=== PATIENT | male | born 1960 | race African-American/Black ===

== ENCOUNTER 2024-10-27 00:32 | Inpatient (IN) | payer BC, OTHER ==
[2024-10-27] MEDS ORDERED: Ketorolac Tromethamine 30 MG (1 mL) VIAL IVP PRN (03:25)
[2024-10-27] MEDS ORDERED: Ipratropium/Albuterol 3 ML NEB NEB PRN (03:25)
[2024-10-27] MEDS ORDERED: Ondansetron PF 4 MG/2 ML Vial IVP PRN ×2 (03:25→22:48)
[2024-10-27] MEDS: Promethazine HCl 25 MG/ML VIAL IM PRN (04:23)
[2024-10-27] MEDS: Lactated Ringer's 1,000 ML IV SCH ×2 (04:23→23:42)
[2024-10-27] MEDS: Morphine 4 MG/ML VIAL SLOW IVP PRN (04:23)
[2024-10-27 04:33] VITALS: BMI 20.5
[2024-10-27] MEDS: Phenol 177 ML BOT PO PRN (09:43)
[2024-10-27] MEDS ORDERED: Ondansetron ODT 4 MG TAB SL PRN (09:57)
[2024-10-27] MEDS ORDERED: cefOXitin 2 GM in Sodium Chloride 0.9% 100 ML IVPB SCH (10:00)
[2024-10-27 10:52] LABS: #Basophils Less than 0.03 10x3/uL (0.0-0.2); %Basophils 0.4 % (0.0-1.0); %Monocytes 19.4 % (0.0-10.0); Hematocrit 30.6 % (42.0-52.0); Hemoglobin 9.9 g/dL (14.0-18.0); Mean Corpuscular HGB CONC 32.4 g/dL (32.0-36.0); Mean Corpuscular Hemoglobin 28.8 pg (27.0-31.0); Mean Platelet Volume 9.7 fL (7.4-10.4); Platelet Count 169 10x3/uL (130-400); RBC Distribution Width 13.8 % (11.5-14.5); Red Blood Cell (RBC) Count 3.44 mill/uL (4.70-6.10)
[2024-10-27 11:05] LABS: ALT (SGPT) 57 U/L (8-55); AST (SGOT) 35 U/L (5-34); Albumin 3.2 g/dL (3.4-4.8); Alkaline Phosphatase 48 U/L (40-110); Anion Gap 14 mmol/L (10-20); BUN (Urea Nitrogen) 34 mg/dL (8.4-25.7); Bilirubin, Total 0.8 mg/dL (0.2-1.2); Calc. Creatinine Clearance 35 mL/min (70-130); Calcium 8.6 mg/dL (7.8-10.44); Carbon Dioxide 31 mmol/L (23-31); Chloride 100 mmol/L (98-107); Estimated GFR 40; Glucose 94 mg/dL (80-115); Magnesium 2.6 mg/dL (1.6-2.6); Phosphorus 3.7 mg/dL (2.3-4.7); Potassium 3.6 mmol/L (3.5-5.1); Protein, Total 6.2 g/dL (5.8-8.1); Sodium 141 mmol/L (136-145)
[2024-10-27] MEDS ORDERED: cefOXitin 2 GM VIAL ONE (14:25)
[2024-10-27] MEDS ORDERED: Sodium Chloride 0.9% 100 ML ONE (14:25)
[2024-10-27] MEDS ORDERED: Lidocaine 2% PF 5 ML VIAL ONE (15:24)
[2024-10-27] MEDS ORDERED: PROPOFOL 20 ML ONE ×2 (15:24→21:19)
[2024-10-27] MEDS ORDERED: Midazolam HCl 2 mg/2 ml Vial ONE (15:25)
[2024-10-27] MEDS ORDERED: Ketamine In 0.9 % NaCl 50 MG/5 ML SYRINGE ONE (15:25)
[2024-10-27] MEDS ORDERED: fentaNYL PF 100 MCG/2 ML SYRINGE ONE (15:27)
[2024-10-27] MEDS ORDERED: Promethazine HCl 25 MG/ML VIAL IM PRN ×4 (15:43→22:48)
[2024-10-27] MEDS ORDERED: HYDROmorphone 2 MG/ML VIAL SLOW IVP PRN ×2 (15:43→22:48)
[2024-10-27] MEDS ORDERED: Ondansetron HCl/PF 4 MG/2 ML Vial IVP PRN ×2 (15:43→22:48)
[2024-10-27] MEDS ORDERED: Morphine 4 MG/ML VIAL ONE (17:49)
[2024-10-27] MEDS ORDERED: hydrALAZINE 20 MG/ML VIAL ONE (19:04)
[2024-10-27] MEDS: hydrALAZINE 20 MG/ML VIAL SLOW IVP PRN (19:12)
[2024-10-27] MEDS ORDERED: fentaNYL 50 mcg/mL 1 mL Vial ONE ×4 (21:19→23:52)
[2024-10-27] MEDS ORDERED: ePHEDrine Sulfate 50 MG/10 ML VIAL ONE (22:07)
[2024-10-27] MEDS ORDERED: SUGAMMADEX SODIUM 200 MG/2 ML VIAL ONE (22:23)
[2024-10-27] MEDS ORDERED: diphenhydrAMINE 25 MG CAP PO PRN (22:48)
[2024-10-27] MEDS ORDERED: diphenhydrAMINE 50 MG/ML VIAL IM PRN ×2 (22:48)
[2024-10-27] MEDS ORDERED: Naloxone HCl 0.4 mg/ml Vial IV PRN ×2 (22:48)
[2024-10-27] MEDS ORDERED: FENTANYL 500 MCG/10 ML VIAL 2,000 MCG in Sodium Chloride 0.9% 60 ML IV PRN (22:48)
[2024-10-27] MEDS ORDERED: diphenhydrAMINE 50 MG/ML VIAL IVP PRN ×2 (22:48)
[2024-10-27] MEDS ORDERED: HYDROmorphone 0.5 MG/0.5 ML SYRINGE ONE ×3 (22:52→23:24)
[2024-10-27] MEDS ORDERED: Communication Order-Pharmacy FS SCH ×2 (23:00)
[2024-10-28] MEDS: Ketorolac Tromethamine 30 MG (1 mL) VIAL IVP SCH (00:34)
[2024-10-28] MEDS ORDERED: HYDROcodone/Acetaminophen 7.5/325 mg Tablet PO PRN (03:31)
[2024-10-28] MEDS ORDERED: Acetaminophen 325 MG TAB PO PRN (03:31)
[2024-10-28] MEDS: cloNIDine 0.3 MG TAB PO SCH (09:03)
[2024-10-28 09:26] LABS: Hematocrit 31.6 % (42.0-52.0); Hemoglobin 10.1 g/dL (14.0-18.0); Mean Corpuscular Hemoglobin 28.7 pg (27.0-31.0); Mean Corpuscular Volume 89.8 fL (78.0-98.0); Mean Platelet Volume 9.8 fL (7.4-10.4); Platelet Count 199 10x3/uL (130-400); RBC Distribution Width 13.7 % (11.5-14.5); Red Blood Cell (RBC) Count 3.52 mill/uL (4.70-6.10)
[2024-10-28 09:35] LABS: Anion Gap 14 mmol/L (10-20); BUN (Urea Nitrogen) 33 mg/dL (8.4-25.7); Calc. Creatinine Clearance 35 mL/min (70-130); Calcium 8.4 mg/dL (7.8-10.44); Carbon Dioxide 30 mmol/L (23-31); Chloride 102 mmol/L (98-107); Estimated GFR 40; Glucose 95 mg/dL (80-115); Magnesium 2.4 mg/dL (1.6-2.6); Potassium 4.1 mmol/L (3.5-5.1); Sodium 142 mmol/L (136-145)
[2024-10-28 10:07] LABS: Band 46 % (5-11); Eosinophils 4 % (0-10); Large Platelets 4.6 % (0-5); Lymphocytes 7 % (21-51); Macrocytosis SLIGHT = 6-15 cells HPF (0-5); Metamyelocyte 1 % (0-0); Monocytes 12 % (0-10); Neutrophil 30 % (42-75); Plasma Cells 1 % (0-0); Platelet Adequacy Comment Platelets Normal; Polychromasia SLIGHT = 2-3 cells HPF (0-2); RBC Morphology Within Normal Limits
[2024-10-28] MEDS: Lactated Ringer's 1,000 ML IV SCH (16:01)
[2024-10-28] MEDS: diphenhydrAMINE 25 MG CAP PO PRN (21:44)
[2024-10-29] MEDS: Acetaminophen 650 MG/20.3 ML UDCUP PO PRN (01:01)
[2024-10-29] MEDS: HYDROmorphone/PF 10 MG in Sodium Chloride 0.9% 99 ML IV PRN (04:37)
[2024-10-29 06:48] LABS: Anion Gap 11 mmol/L (10-20); BUN (Urea Nitrogen) 29 mg/dL (8.4-25.7); Calc. Creatinine Clearance 40 mL/min (70-130); Calcium 8.4 mg/dL (7.8-10.44); Carbon Dioxide 29 mmol/L (23-31); Chloride 103 mmol/L (98-107); Estimated GFR 47; Glucose 103 mg/dL (80-115); Potassium 4.1 mmol/L (3.5-5.1); Sodium 139 mmol/L (136-145)
[2024-10-29] MEDS ORDERED: HYDROcodone/Acetaminophen 10/325 mg Tablet PO PRN (10:33)
[2024-10-29] MEDS ORDERED: traMADol HCl 50 MG TAB PO PRN ×3 (10:35→16:29)
[2024-10-29] MEDS: HYDROcodone/Acetaminophen 10/325 mg Tablet PO PRN (12:45)
[2024-10-29] MEDS: Ondansetron PF 4 MG/2 ML Vial IVP PRN (14:31)
[2024-10-29] MEDS ORDERED: Acetaminophen 500 MG TAB PO SCH (17:00)
[2024-10-29] MEDS: Ondansetron PF 4 MG/2 ML Vial IVP SCH (19:11)
[2024-10-29] MEDS: Morphine 4 MG/ML VIAL SLOW IVP PRN (19:11)
[2024-10-29] MEDS: Amlodipine 5 MG TAB PO SCH (19:12)
[2024-10-29] MEDS: Lactated Ringer's 1,000 ML IV SCH (19:12)
[2024-10-29] MEDS: hydrALAZINE 20 MG/ML VIAL SLOW IVP SCH (21:00)
[2024-10-29] MEDS: diphenhydrAMINE 50 MG CAP PO PRN (23:10)
[2024-10-30] MEDS ORDERED: Acetaminophen 325 MG TAB PO PRN (03:09)
[2024-10-30 03:15] LABS: Hematocrit 33.1 % (42.0-52.0); Hemoglobin 10.6 g/dL (14.0-18.0); Mean Corpuscular Volume 90.7 fL (78.0-98.0); Mean Platelet Volume 9.4 fL (7.4-10.4); Platelet Count 228 10x3/uL (130-400); RBC Distribution Width 13.7 % (11.5-14.5); Red Blood Cell (RBC) Count 3.65 mill/uL (4.70-6.10)
[2024-10-30] MEDS: Morphine 4 MG/ML VIAL SLOW IVP PRN (03:25)
[2024-10-30] MEDS: chlorproMAZINE HCl 25 MG TAB PO PRN (03:25)
[2024-10-30 03:55] LABS: ALT (SGPT) 25 U/L (8-55); AST (SGOT) 19 U/L (5-34); Albumin 2.7 g/dL (3.4-4.8); Alkaline Phosphatase 46 U/L (40-110); Anion Gap 15 mmol/L (10-20); BUN (Urea Nitrogen) 24 mg/dL (8.4-25.7); Bilirubin, Total 0.6 mg/dL (0.2-1.2); Calc. Creatinine Clearance 48 mL/min (70-130); Carbon Dioxide 24 mmol/L (23-31); Chloride 101 mmol/L (98-107); Estimated GFR 58; Globulin 3.7 g/dL (2.4-3.5); Glucose 92 mg/dL (80-115); Potassium 4.1 mmol/L (3.5-5.1); Protein, Total 6.4 g/dL (5.8-8.1); Sodium 136 mmol/L (136-145)
[2024-10-30] MEDS ORDERED: Nitroglycerin 0.4 MG TAB (25 Tab Bottle) SL PRN (04:21)
[2024-10-30 04:34] LABS: Band 16 % (5-11); Burr Cells SLIGHT = 2-5 cells HPF (0-1); Eosinophils 6 % (0-10); Lymphocytes 5 % (21-51); Monocytes 14 % (0-10); Neutrophil 59 % (42-75); Platelet Adequacy Comment Platelets Normal; Polychromasia SLIGHT = 2-3 cells HPF (0-2)
[2024-10-30 07:06] LABS: Cardiac Risk 3.5 (Less than 4.5)
[2024-10-30 07:11] LABS: Troponin I 0.264 ng/mL (< 0.028)
[2024-10-30] MEDS: Amlodipine 5 MG TAB PO SCH (07:53)
[2024-10-30 10:07] LABS: Troponin I 0.262 ng/mL (< 0.028)
[2024-10-30] MEDS: Enoxaparin 40 MG (0.4 mL) SYRINGE SC SCH (10:17)
[2024-10-30 10:57] LABS: Amphetamine Not Detected (NotDetected); Barbiturates Screen Not Detected (NotDetected); Benzodiazepine Screen Not Detected (NotDetected); Cocaine Metabolite Screen Detected (NotDetected); Methadone Not Detected (NotDetected); Methamphetamine Not Detected (NotDetected); Opiate Screen Detected (NotDetected); Oxycodone Screen Not Detected (NotDetected); Phencyclidine (PCP) Not Detected (NotDetected); THC/Cannabinoid Screen Detected (NotDetected); Tricyclic Screen Not Detected (NotDetected)
[2024-10-30] MEDS: Labetalol HCl 100 MG/20 ML VIAL ONE (11:18)
[2024-10-30] MEDS: Labetalol HCl 100 MG/20 ML VIAL SLOW IVP PRN (16:15)
[2024-10-31] MEDS: cloNIDine 0.3 MG TAB PO SCH (03:39)
[2024-10-31] MEDS: HYDROcodone/Acetaminophen 10/325 mg Tablet PO PRN (03:42)
[2024-10-31 06:53] LABS: Anion Gap 15 mmol/L (10-20); BUN (Urea Nitrogen) 21 mg/dL (8.4-25.7); Calc. Creatinine Clearance 63 mL/min (70-130); Calcium 8.3 mg/dL (7.8-10.44); Carbon Dioxide 22 mmol/L (23-31); Chloride 106 mmol/L (98-107); Estimated GFR 80; Glucose 81 mg/dL (80-115); Sodium 139 mmol/L (136-145)
[2024-10-31] MEDS: NIFEdipine XL 60 MG ER.TAB PO SCH (09:17)
[2024-10-31] MEDS: Famotidine/PF 20 mg/2ml Vial SLOW IVP SCH (09:18)
[2024-10-31 11:40] VITALS: BMI 20.5
[2024-10-31] MEDS: Carvedilol 6.25 MG TAB PO SCH ×2 (11:57→18:01)
[2024-10-31] MEDS: Sacubitril 24MG/Valsartan 26 MG TAB PO SCH (20:40)
[2024-10-31] MEDS ORDERED: Ondansetron HCl/PF 8 MG in Sodium Chloride 0.9% 50 ML IVPB PRN (20:56)
[2024-10-31] MEDS: Ondansetron ODT 8 MG TAB SL PRN (23:33)
[2024-11-01 04:52] LABS: Anion Gap 14 mmol/L (10-20); BUN (Urea Nitrogen) 24 mg/dL (8.4-25.7); Calc. Creatinine Clearance 55 mL/min (70-130); Calcium 8.5 mg/dL (7.8-10.44); Carbon Dioxide 22 mmol/L (23-31); Chloride 105 mmol/L (98-107); Estimated GFR 68; Glucose 96 mg/dL (80-115); Potassium 4.1 mmol/L (3.5-5.1); Sodium 137 mmol/L (136-145)
[2024-11-01 11:20] VITALS: BP 156/99; TEMP 97.5
[2024-11-01] MEDS ORDERED: Enoxaparin 40 MG (0.4 mL) SYRINGE SC SCH (21:00)
== END 2024-11-01 15:15 | disposition home or self-care (01) | DRG 335 ==
LOC: SURG B 02:04 → OBSVTOIN 03:26 → IMCU/EMU 10-30 04:59 → 2NO 10-31 21:24
PROVIDERS: ADMIT Specialist; ATTEND Specialist
PROC: 0DN80ZZ Release Small Intestine, Open Approach (ICD-10-PCS; principal; 2024-10-27)
DX: K56.601 Complete intestinal obstruction, unspecified as to cause (principal); I21.A1 Myocardial infarction type 2; N17.9 Acute kidney failure, unspecified; I42.0 Dilated cardiomyopathy; I12.9 Hypertensive chronic kidney disease with stage 1 through stage 4 chronic kidney disease, or unspecified chronic kidney disease; N18.30 Chronic kidney disease, stage 3 unspecified; D63.1 Anemia in chronic kidney disease; F14.10 Cocaine abuse, uncomplicated; Z79.899 Other long term (current) drug therapy
CPT/HCPCS: 36415; 36416; 74018; 74022; 80048; 80053; 80061; 80306; 82088; 83735; 84100; 84244; 84484; 85025; 93005; 93010; 93306; A4314; C1776; J0360; J0694; J1650; J1885; J2250; J2272; J2405; J2550; J2704; J3010; J3490; J7120; Q0161; Q0162